=== PATIENT | female | born 1960 | race Two or more races ===

== ENCOUNTER 2017-10-12 11:16 | Emergency (ER) | payer MEDICAID, OTHER ==
[~2017-10-12] VITALS: Ht 157.5 cm; Wt 107.0 kg
[~2017-10-12 11:16] MED LIST: LISIPOW; WARFARIN
[2017-10-12 11:26] VITALS: BP 151/96
== END 2017-10-12 16:36 | disposition home or self-care (01) ==
LOC: ER 11:16
DX: I83.811 Varicose veins of right lower extremity with pain (principal); I10 Essential (primary) hypertension; M54.5 Low back pain; G89.29 Other chronic pain; Z88.6 Allergy status to analgesic agent; Z76.0 Encounter for issue of repeat prescription; Z79.01 Long term (current) use of anticoagulants; Z86.718 Personal history of other venous thrombosis and embolism
CPT/HCPCS: 93971

== ENCOUNTER 2018-05-06 14:30 | Emergency (ER) | payer MEDICAID ==
[~2018-05-06] VITALS: Ht 160 cm; Wt 106.6 kg
[2018-05-06 18:45] VITALS: BP 184/101
[2018-05-06] MEDS ORDERED: KETOROLAC TROMETH 60MG/2ML VIAL IM ONE (18:45)
[2018-05-06] MEDS ORDERED: methylPREDNISolone SOD SUCC 125 MG/2 ML VL IM ONE (18:45)
== END 2018-05-06 20:06 | disposition home or self-care (01) ==
LOC: ER 14:30
DX: S33.5XXA Sprain of ligaments of lumbar spine, initial encounter (principal); I10 Essential (primary) hypertension; Z88.8 Allergy status to other drugs, medicaments and biological substances; Z79.899 Other long term (current) drug therapy; X50.3XXA Overexertion from repetitive movements, initial encounter; Y93.89 Activity, other specified; Y99.0 Civilian activity done for income or pay; Y92.89 Other specified places as the place of occurrence of the external cause
CPT/HCPCS: 72100; 93005; 96372; 99284; J1885; J2930

== ENCOUNTER 2025-06-18 06:54 | Day surgery (SDC) | payer OTHER, MEDICAID ==
[2025-06-18] VITALS (7 sets, daily range): BP systolic 133–148; BP diastolic 63–81; PULSE 60–72; RESP 12–18; O2SAT 94–98
[~2025-06-18] VITALS: Ht 157.5 cm; Wt 93.9 kg
[~2025-06-18 06:54] MED LIST changes: +ACET500T58 PO; +AMOX500T86 PO; +ATOR20TA50 PO; +CELE100C82 PO; +ERGO20002 PO; +FERR-7 PO; +FURO20TA3 PO; +GABA-1308 PO; +GLUC750C4 PO; +IBUP-1456 PO; -LISIPOW; +LOSA-535 PO; +PRED20TA2 PO; +TURM1TAB PO; -WARFARIN
[2025-06-18] MEDS ORDERED: IODIXANOL 320MG/ML 100ML BTL IV ONE (07:21)
[2025-06-18] MEDS ORDERED: HEPARIN SODIUM (PORCINE) 5000 UNITS/ML 1ML VIAL ONE (07:37)
[2025-06-18] MEDS ORDERED: ANGIOMAX 250 MG VIAL IV ONE (07:37)
[2025-06-18] MEDS ORDERED: SODIUM CHL 0.9% 0 ML ONE (07:38)
[2025-06-18] MEDS ORDERED: fentaNYL CITRATE 100 MCG/2 ML VL ONE (07:38)
[2025-06-18] MEDS ORDERED: LIDOCAINE 2%HCL (LOCAL ANESTH.) INJ 20ML MDV ONE (07:38)
[2025-06-18] MEDS ORDERED: MIDAZOLAM HCL 2MG/2ML 2ml VIAL (1mg/ml) ONE (07:38)
[2025-06-18] MEDS ORDERED: VERAPAMIL 2.5MG/ML INJ 2ML VIAL IV ONE (07:38)
--- NOTE | 2025-06-18 08:41 | DVHOP2 ---
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 It was free of disease. Ramus intermedius: Ramus intermedius was a large caliber/branching vessel. It came off the left main. Ramus intermedius throughout its course and branches was free of disease. LAD: LAD was coming off the left main. LAD throughout its course and branches was free of disease. LCX: LCX was coming off the left main. It provided a small obtuse marginal and LCX itself continued as a medium-sized 2nd obtuse marginal. LCX throughout its course and branches was free of disease. RCA: RCA was coming off the right sinus of Valsalva. It was the dominant vessel and provided RPDA. RCA throughout its course and branches was free of disease. Presentation: Patient is a 65-year-old female who presented to the office with chest discomfort. Past medical history includes DJD, low back pain, obesity, hypertension, neuropathy, hyperlipidemia, presyncope, multiple episodes of TIA, status post hysterectomy/oophorectomy/tonsillectomy and she is ex alcoholic. 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 Echocardiogram of April 2025 revealed ejection fraction of 60% with no specific valvular disease. Nuclear stress test of May 26, 2025 revealed large sized ischemia. The patient was sent for cardiac catheterization. Procedure: After obtaining informed consent, the patient was brought to skill labor. She was prepped and draped in sterile fashion. Right radial artery was used for access site. 1 mg of Versed and 50 mcg of fentanyl were used for moderate sedation. Using Seldinger technique, the right radial artery was accessed (under ultrasound guidance). A six Marshallese slender sheath was inserted into the right radial artery. 2.5 mg of verapamil and 100 mcg of nitroglycerin were given as a cocktail into the right radial sheath. 5000 units of heparin was given peripherally. A five Marshallese tiger four diagnostic catheter was used t o perform left heart catheterization (obtaining pressures and performing left ventriculography) and right coronary angiography. A six [place] JL 3.5 diagnostic catheter was used to perform left coronary angiography. There was no indication for any transcatheter revascularization. There was no dissection/hematoma/perforation. Total bleeding was less than 10 mL. Patient tolerated procedure with no complication. Right radial artery access site was managed by deploying a TR band. Fluoroscopy time: 4.0 minutes Contrast: 50 mL of Visipaque WENCESLAO THOMAS MD Jun 18, 2025 08:41
== END 2025-06-18 10:30 | disposition home or self-care (01) ==
LOC: CATH 06:54
PROVIDERS: ATTEND Internal Medicine Cardiovascular Disease
DX: R07.89 Other chest pain (principal); R94.39 Abnormal result of other cardiovascular function study; I10 Essential (primary) hypertension; E78.5 Hyperlipidemia, unspecified; M19.90 Unspecified osteoarthritis, unspecified site; E66.9 Obesity, unspecified; Z68.37 Body mass index [BMI] 37.0-37.9, adult; Z79.899 Other long term (current) drug therapy; Z86.73 Personal history of transient ischemic attack (TIA), and cerebral infarction without residual deficits; Z90.710 Acquired absence of both cervix and uterus; Z90.712 Acquired absence of cervix with remaining uterus; Z90.89 Acquired absence of other organs; Z88.5 Allergy status to narcotic agent; Z82.49 Family history of ischemic heart disease and other diseases of the circulatory system
CPT/HCPCS: 93458; C1769; C1894; J1644; J2250; J3010; Q9967; 99152